=== PATIENT | female | born 1995 | race Two or more races ===

== ENCOUNTER 2020-10-27 19:11 | Emergency (ER) | payer MEDICAID ==
[~2020-10-27] VITALS: Ht 154.9 cm; Wt 80.0 kg
[2020-10-27] MEDS ORDERED: ACET-2708 MT (19:48)
[2020-10-27 19:56] VITALS: BP 121/65
[2020-10-27] MEDS ORDERED: FERR325T6 PO (21:56)
[2020-10-27] MEDS ORDERED: PREN1TAB78 PO (21:56)
== END 2020-10-27 19:58 | disposition home or self-care (01) ==
LOC: ER 19:11
DX: O26.893 Other specified pregnancy related conditions, third trimester (principal); Z3A.30 30 weeks gestation of pregnancy; Z04.1 Encounter for examination and observation following transport accident
CPT/HCPCS: 99282

== ENCOUNTER 2020-10-27 20:30 | Observation (INO) | payer MEDICAID ==
[~2020-10-27] VITALS: Ht 154.9 cm; Wt 79.8 kg
[~2020-10-27 20:30] MED LIST: ACET-2708 MT
[2020-10-27] MEDS ORDERED: FERR325T6 PO (21:56)
[2020-10-27] MEDS ORDERED: PREN1TAB78 PO (21:56)
== END 2020-10-27 23:19 | disposition home or self-care (01) ==
LOC: 8 EST LDRP 20:30
PROVIDERS: ADMIT Obstetrics & Gynecology; ATTEND Obstetrics & Gynecology
DX: Z34.93 Encounter for supervision of normal pregnancy, unspecified, third trimester (principal); V43.52XA Car driver injured in collision with other type car in traffic accident, initial encounter; Y93.89 Activity, other specified; Y92.488 Other paved roadways as the place of occurrence of the external cause; Z3A.30 30 weeks gestation of pregnancy
CPT/HCPCS: 59025; 76805; 76817; 76818; G0378; 99281